=== PATIENT | male | born 1950 | race Hispanic/Latino ===

== ENCOUNTER 2018-01-23 06:16 | Day surgery (SDC) | payer OTHER ==
[2018-01-18 13:54] VITALS: BMI 30.1
[2018-01-23] MEDS ORDERED: Lactated Ringer's 1,000 ML IV ONE ×2 (07:07→08:38)
[2018-01-23] MEDS ORDERED: Lidocaine 1% w Epi 1:100,000 Inj ONE (07:19)
[2018-01-23] MEDS ORDERED: EPINEPHrine 1 mg/ml (1:1000) Inj ONE (07:20)
[2018-01-23] MEDS ORDERED: Bacitracin Ointment 30 GM TUBE ONE (07:20)
[2018-01-23] MEDS ORDERED: Absorbable Gelatin Sponge Size 12-7 ONE (07:21)
[2018-01-23] MEDS ORDERED: Thrombin Topical 5,000 Int Units Spray Kit ONE (07:22)
--- NOTE | 2018-01-23 07:23 | CP.SDSHP ---
Same Day Surgery H & P - History Proposed Procedure: R shoulder arthroscopy Pre-Op Diagnosis: R shoulder rotator cuff tears - Previous Medical/Surgical History Comments: Ulcerative colitis Previous Surgical History: R knee arthroscopy, umbilical hernia repair, R inguinal hernia repair - Allergies Allergies: Allergies No Known Allergies Allergy (Verified 01/23/18 06:47) - Current Medications Current Medications: as per med rec - Physical Exam General Appearance: NAD Vital Signs: Vital Signs 01/23/18 07:09 Temperature 97.9 F Pulse Rate 58 L Respiratory 18 Rate Blood Pressure 118/76 O2 Sat by Pulse 96 Oximetry Mental Status: Alert & Oriented x3 Neuro: WNL Heart: WNL Lungs: WNL GI: WNL Social History: Alcohol (occassionally) - {Optional Preform as Required} Abdomen: WNL Integument: WNL Ortho: Other (R shoulder weakness in FF, ABD, sensation and motor intact MN/UN/RN, radial pulses intact, no tenderness, no lesions) ENT: WNL - Impression Impression: Patient is a LHD male with PMH of ulcerative colitis who presents for elective R shoulder arthroscopy. Patient's symptoms of pain, weakness and loss of motion are due to a fall which occurred at home. He has failed conservative management and elected for surgical management. Risks/benefits/alternatives were explained to the patient who understands and agrees to proceed with above procedure. Pt. Evaluated Today:Candidate for Anesthesia & Procedure: Yes - Date & Time Date: 01/23/18 Time: 07:23 Short Stay Discharge - Short Stay Discharge Admitting Diagnosis/Reason for Visit: S46.011A/ M25.611/ M25.511/ Disposition: HOME/ ROUTINE Medications: oxyCODONE/Acetaminophen [Percocet 5/325 mg Tab] 1 - 2 ea PO Q4 PRN #30 tab PRN Reason: Pain, Severe (8-10) Referrals: FAMILY PROVIDER,NO [Primary Care Provider] -
[2018-01-23] MEDS ORDERED: Ropivacaine 0.5% 30ML IV ONE ×2 (07:42→07:47)
[2018-01-23] MEDS ORDERED: Propofol 10 mg/ml Inj (20 ML) ONE (07:44)
[2018-01-23] MEDS ORDERED: Midazolam 2 MG/2 ML VIAL ONE (07:45)
[2018-01-23] MEDS ORDERED: Lidocaine 1% 5ml Abboject ONE ×2 (07:45→08:06)
[2018-01-23] MEDS ORDERED: Lidocaine 2% Jelly (5 ml) TOP ONE (08:03)
[2018-01-23] MEDS ORDERED: ePHEDrine 50 mg/ml Inj ONE (08:14)
[2018-01-23] MEDS ORDERED: Lidocaine 1% Inj (20ml) IJ ONE ×2 (08:36→08:55)
[2018-01-23] MEDS ORDERED: Oxycodone/Acetaminophen 5/325 mg Tab PO PRN (10:32)
[2018-01-23] MEDS ORDERED: MethylPREDNISolone Depo 40 mg/ml Inj ONE (10:42)
[2018-01-23] MEDS ORDERED: Bupivacaine 0.25% Inj(30mL) IJ ONE (10:44)
[2018-01-23] MEDS ORDERED: Lactated Ringer's 1,000 ML IV SCH (10:45)
[2018-01-23] MEDS ORDERED: Dexamethasone 4 mg/1 ml ONE (10:53)
--- NOTE | 2018-01-23 11:07 | PCM.SURG1 ---
Surgeon's Initial Post Op Note - Surgeon's Notes Surgeon: Arpan [employer] Policy Consultant: 1st assist MEGGAN Toribio Type of Anesthesia: General Endo, Block Regional Anesthesia Administered By: DR Augie Cantu Pre-Operative Diagnosis: grade 3 rotator cuff tear with retraction. labral tear. biceps separation with medical displacement. A/C joint arthropathy. subacromail impingement. severe bursitis/adhesions subacromial space Operative Findings: gr 3 rotatopr cuff tear with retraction. labral tear anterior toposterior. biceops tendon separation with medial displaceemnt biceps tendon. acromioclavicular joint arthropathy. subacromial impingement. bursitis/adhesions subacromial space Post-Operative Diagnosis: as above Operation Performed: arthroscopic gr 3 rotator cuff repair. arthroscopic labral repair(extening anterior inferior to posterior). intraarticular biceps tenodesis. partial distal claviculectomy. arthroscopic parial acromioplasty. arthroscopic debridement subacromial space and lysis of adhesions. intraarticular injection. applx gunslinger split with abduction pillow Specimen/Specimens Removed: synovium/tendon. bone/cartilage Estimated Blood Loss: EBL {In ML}: 20 Drains Used: No Drains Post-Op Condition: Good Date of Surgery/Procedure: 01/23/18 Time of Surgery/Procedure: 08:45 (time in room/anaestheisa indcution time 7:45)
[2018-01-23] MEDS ORDERED: HYDROmorphone 0.5 mg/0.5 ml ISec IVP PRN (11:18)
--- NOTE | 2018-01-23 11:20 | PCM.ANESB1 ---
Interscalene Block - Brachial Plexus Date of Procedure: 01/23/18 Anesthesiologist: Pepe Pre-Procedure Diagnosis: right shoulder internal derangement Post-Procedure Diagnosis: same Procedure Performed: Interscalene Block of Brachial Plexus Right - Procedure Interscalene Block of Brachial Plexus: This procedure was explained to the patient that it is for post-operative pain management. Consent was obtained after a thorough discussion with the patient regarding the benefits and possible complications of local anesthetic block of the Brachial Plexus at the Interscalene area. The patient was brought to the Operating Room and standard monitors were applied. Time out was held with the circulating nurse to confirm the correct surgery and appropriate block. After applying Oxygen by nasal cannula and administering IV Sedation, the patient's head was gently rotated away from the ___right___operative shoulder and the anterior scalene groove was carefully palpated. The ultrasound transducer was then applied to the skin in the transverse plane and the brachial plexus was visualized lateral to the carotid artery and in between the anterior and middle scalene muscles. After identification,the anterior lateral portion of the neck was prepped with Betadine solution three times and Lidocaine 1% was injected subcutaneously for topical analgesia. At this point, a # 22 gauge Stimuplex 2 inches insulated needle was inserted into the interscalene groove and directed in a caudal and midline direction. The needle was inserted lateral to the ultrasound transducer in-plane towards the brachial plexus in a [id number] direction. Needle advancement was performed carefully under direct ultrasound visualization. Nerve stimulator was used and twitched of the affected extremity including the hand brachialis muscles, biceps and the deltoid was obtained at a current of 0.4 MA. After repeated negative aspiration,_30____cc of_0.5____,__Ropivicaine were injected and this was followed with cc of % . Under ultrasound guidance the local anesthetics were observed surrounding the roots of the brachial plexus. The needle was removed intact and sterile dressing was applied. The patient had stable vital signs, was conscious and in no apparent distress. The patient tolerated the interscalene block of the bracheal plexus well with stable vital signs and was prepared for subsequent surgery.
[2018-01-23 13:47] VITALS: RESP 18
[2018-01-23] MEDS ORDERED: Lidocaine 2% MPF (5 ml) Inj INJ ONE (14:49)
[2018-01-23] MEDS ORDERED: Bupivacaine 0.25% Inj(30mL) ONE (14:50)
[2018-01-23 15:42] VITALS: BP 107/70; PULSE 78; TEMP 98.3; O2SAT 97
--- NOTE | 2018-01-25 23:46 | OP ---
PROCEDURE DATE: 01/23/2018 LOCATION: [facility]. PREOPERATIVE DIAGNOSES: 1. Grade 3 rotator cuff tear, right shoulder with retraction. 2. Tear of glenoid labrum extending anterior to posterior to the root of the biceps tendon. 3. Biceps tendon separation with medial displacement. 4. Acromioclavicular joint arthropathy. OPERATIVE FINDINGS: 1. Grade 3 rotator cuff tear, right shoulder with retraction. 2. Labral tear extending anterior to posterior to the root of the biceps tendon and a bit posterior to that. 3. Biceps tendon separation with medial displacement of the biceps tendon intra-articularly. 4. Acromioclavicular joint arthropathy. 5. Subacromial impingement. 6. Bursitis and adhesions in the subacromial space. POSTOPERATIVE DIAGNOSES: 1. Grade 3 rotator cuff tear, right shoulder with retraction. 2. Tear of glenoid labrum extending anterior to posterior to the root of the biceps tendon. 3. Biceps tendon separation with medial displacement. 4. Acromioclavicular joint arthropathy. OPERATION PERFORMED: 1. Arthroscopic grade 3 rotator cuff repair. 2. Arthroscopic intra-articular biceps tenodesis. 3. Arthroscopic labral repair extending anterior to posterior. 4. Arthroscopic partial distal claviculectomy. 5. Arthroscopic partial acromioplasty. 6. Arthroscopic debridement with lysis of adhesions and bursectomy in the subacromial space. 7. Intra-articular injection. 8. Application of gunslinger abduction splint with abduction pillow. SPECIMENS: Synovium, tendon, bone, cartilage. BLOOD LOSS: Approximately 20 mL. DRAINS: No drains. POSTOPERATIVE CONDITION: Stable. DATE OF SURGERY: 01/23/2018 TIME OF SURGERY: Time in the room 07:45, incision time 08:45. 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 The patient had prior right shoulder pain but got to the point where the right shoulder decompensated after the injury. MRI examination was accomplished. Pros, cons, risks and benefits of the surgical approach were discussed. The possibility of mechanical failure, infection, thromboembolic disease, shoulder stiffness, nerve injury, secondary or tertiary surgery was discussed. The patient can no longer withstand the discomfort and wished the surgery to be accomplished. OPERATIVE PROCEDURE: After having obtained informed consent in the above fashion, especially in the sense that the patient is a medical professional after having obtained informed consent in the above fashion, after having identified the side, site and procedure and critical pause/time-out and after the satisfactory induction of the anesthetic, the patient identified as Reyes Burnett in the modified robins chair position, the right upper extremity was prepped and free draped in the usual fashion for upper extremity surgery. The Arthrex upper extremity shoulder positioner was employed. After sterilely prepping and draping, after having identified side, site and procedure and a critical pause/time-out, the topographic anatomy of the shoulder was marked, spine of the scapula, lateral aspect of the acromion and the coracoid process. The joint was insufflated at a point approximately one thumbs breadth inferior, one thumbs breadth lateral to the one thumbs just medial to the lateral aspect of the acromion. Using #1 blade followed by spreading, introduction of blunt trocar, the arthroscope was introduced. There was found to be a great deal of damage to the joint as well as medial displacement of the biceps tendon with displacement of the biceps tendon anchor. There was medially noticed a global tear of the glenoid labrum extending anterior inferiorly to the root of the biceps tendon and just posteriorly. Triangulation was accomplished using #18-gauge spinal needle followed by #11 blade followed by introduction of the Wissinger lashay and the cannula. A mid lateral portal was accomplished as well using #18-gauge spinal needle followed by #11 blade followed by spreading with the arthroscope posteriorly with the cannula introduced anteriorly and taking great care to staying lateral to the coracoid process. An extensive synovectomy was accomplished. Extensive synovectomy of the glenohumeral joint was accomplished. Please refer to the video photographs. Extensive synovectomy and chondroplasty of the glenohumeral joint was accomplished, and the synovectomy was carefully accomplished. With the arthroscope posteriorly, the anterior aspect of the glenoid was roughened. Attention was turned to the anterior aspect of the glenoid separation. The anterior aspect of the glenoid was roughened with the periosteum elevator and the rasp and using the lasso, the glenoid labrum was captured with the lasso. The lasso was brought out. The loop was brought out anteriorly. The FiberWire was placed across. This was brought out anteriorly and this having been accomplished, drilling was accomplished at the 1 o'clock position on the glenoid labral clock face. This having been accomplished, the PushLock anchor was loaded and introduced and at this point in time, the repair of the labral separation was carried out. Three additional anchors were placed on the anterior aspect of the glenoid labrum and extending to the posterior aspect. The exact same procedure was accomplished. The lasso was used to grasp the labrum, brought out anteriorly and loaded with the FiberTape. The FiberTape limbs were brought out anteriorly. Drilling was accomplished at 1, 2, 3, and 4 o'clock. The PushLock anchors were loaded and impacted. The repair was found to be excellent. Attention was now turned to the biceps tendon separation and displacement. The lasso was placed in the area of the anchor of the biceps tendon. It was brought out anteriorly. This having been accomplished, the FiberTape was placed, and the intra-articular biceps tenodesis was accomplished with drilling at approximately 12 o'clock position. Please refer to the video photographs. Intra-articular biceps tenodesis having been accomplished, extensive debridement of the glenohumeral joint was completed. Attention was now turned to the subacromial space with the arm placed in dependency with great care to enter the subacromial space, the arthroscope encountered a great deal of bursitis and adhesions. Triangulation was accomplished using #18-gauge spinal needle followed by #11 blade followed by spreading with the arthroscope posteriorly, extensive debridement of the subacromial space was accomplished using the arthroscopic shaver and the arthroscopic wand. With the arthroscope posteriorly, great care was taken to perform a careful subacromial bursectomy with adhesions of the subacromial space. With the arthroscope then posteriorly, arthroscopic lysis of adhesions and debridement of the subacromial space was completed. This having been accomplished, the rotator cuff was evaluated. There was found to be a complete grade 3 rotator cuff tear with retraction. At this point in time, the Passport was placed in the mid lateral portal with the arthroscope posteriorly. Using the cuff grasper, the rotator cuff was mobilized. With the arm now in abduction and internal rotation, the scorpion was used to deploy the FiberTape in a V type fashion laterally and another FiberTape medially. These were both brought out off the FiberTape. They were grasped with clamps and were . At this point in time, with the arm in abduction and internal rotation, the more medial FiberTape was loaded into the SwiveLock anchor. It was impacted in the area of the rotator cuff footprint, and the SwiveLock was introduced. The peak anchor was introduced over this. This having been accomplished, the fixation was found to be excellent. Attention was now turned to the more lateral aspect of the footprint and the exact same process was accomplished. The rotator cuff was offering complete coverage of the previous bare humeral head. The rotator cuff was found to be excellent. The arm was placed in dependency and there was complete coverage of the humeral head with the rotator cuff repair. The wound was thoroughly irrigated. Aggressive debridement of the subacromial space continued with the arthroscopic shaver and ArthroCare wand. With the arthroscope mid laterally, using the arthroscopic wand, the acromioclavicular joint capsule was debrided and this having been accomplished, there was found to be evidence of arthropathy of the acromioclavicular joint. This having been accomplished with the arthroscopic bur, a partial distal claviculectomy was accomplished to the distal 1 cm of the clavicle to include the articular surface. Partial distal claviculectomy having been accomplished, the arthroscope now placed posteriorly, a partial acromioplasty was accomplished with the bur as well. Please refer to the video photographs. Hemostasis was controlled with the arthroscopic wand. Partial acromioplasty having been accomplished, partial distal claviculectomy and debridement of subacromial space and lysis of adhesions and partial bursectomy were completed. The wound was thoroughly irrigated. Closures in layers with interrupted Vicryl and nylon. Intra-articular injection of steroid was accomplished. Compression dressing and shoulder abduction splint were applied. Ritesh Antony MD
== END 2018-01-23 16:15 | disposition home or self-care (01) ==
LOC: H.OPSURG 06:16
PROVIDERS: ATTEND Orthopaedic Surgery
DX: M75.101 Unspecified rotator cuff tear or rupture of right shoulder, not specified as traumatic (principal); M12.811 Other specific arthropathies, not elsewhere classified, right shoulder; M75.41 Impingement syndrome of right shoulder; M75.51 Bursitis of right shoulder
CPT/HCPCS: 29822; 29824; 29827; 29828; 88304; C1713; J0171; J0690; J1030; J1100; J1885; J2250; J2405; J2704; J3010; J7030; J7120